=== PATIENT | female | born 1955 | race Caucasian/White ===

== ENCOUNTER 2021-09-16 11:04 | Outpatient (CLI) | payer MEDICARE, SELFPAY ==
--- NOTE | ~2021-09-16 | XR_ITS ---
XR knee RT 2V DATE: 09/16/2021 11:27 INDICATION: Bilateral knee pain worse on the left TECHNIQUE: AP and lateral views COMPARISON: None FINDINGS: There is prominent joint space narrowing and periarticular spurring of the patellofemoral a nd medial compartments as well as prominent lateral tibial plateau periarticular spurring. There is v arus deformity. No fracture or dislocation or joint effusion. No radiopaque intra-articular loose body or chondrocalc inosis. IMPRESSION: Tricompartment osteoarthritis, particularly severe at the medial and patellofemoral nura rtments, more severe than on the left Reviewed, dictated and finalized at location B. IMPRESSION: Tricompartment osteoarthritis, particularly severe at the medial an d patellofemoral compartments, more severe than on the left
--- NOTE | ~2021-09-16 | XR_ITS ---
XR knee LT 2V DATE: 09/16/2021 11:27 INDICATION: Bilateral knee pain, worse on the left TECHNIQUE: AP and lateral views COMPARISON: None FINDINGS: There is prominent joint space narrowing and spurring at the patellofemoral and medial comp artments. There is mild particular spurring of the lateral compartment. No fracture or dislocation or joint effusion, radiopaque intra-articular loose body or chondrocalcino sis is noted. No periosteal reaction or bone destruction. IMPRESSION: Tricompartment osteoarthritis, most prominent at the patellofemoral and medial compartmen ts Reviewed, dictated and finalized at location B. IMPRESSION: Tricompartment osteoarthritis, most prominent at the patellofemoral and medial compartments
== END 2021-09-16 11:05 | disposition home or self-care (01) ==
PROVIDERS: PCP Physician Assistant; Visit Provider Physician Assistant
DX: M25.561 Pain in right knee (principal); M25.562 Pain in left knee; G89.29 Other chronic pain; M17.0 Bilateral primary osteoarthritis of knee
CPT/HCPCS: 73560

== ENCOUNTER 2022-06-15 15:22 | Outpatient (CLI) | payer MEDICARE, SELFPAY ==
--- NOTE | 2022-06-15 15:40 | ECG_ITS ---
Measurements Intervals [place] Rate: 78 P: 47 IA: 175 QRS: 0 QRSD: 120 T: 46 QT: 381 QTc: 435 Interpretive Statements SINUS RHYTHM NONSPECIFIC INTRAVENTRICULAR CONDUCTION DELAY BORDERLINE ECG NO PREVIOUS ECG AVAILABLE FOR COMPARISON Electronically Signed On 06-15-2022 16:27:44 FIBRE COMPOSITE TECHNICIAN by Stew Bearden M.D.
[2022-06-15 15:54] LABS: Appearance Urine Clear (Clear); Bilirubin Urine Negative (Negative); Blood Urine Negative (Negative); Color Urine Yellow (Yellow); Glucose Urine UA Negative (Negative); Ketones Urine Negative (Negative); Leukocyte Esterase Ur Negative LEU/UL (Negative); Nitrate Urine Negative (Negative); Protein Urine Negative (Negative); Specific Grav Ur 1.015 (1.001-1.035); Urobilinogen Urine 0.2 mg/dL (<2.0)
[2022-06-15 15:55] LABS: Add Urine Microscopic? NO
== END 2022-06-15 15:23 | disposition home or self-care (01) ==
PROVIDERS: PCP Physician Assistant; Visit Provider Nurse Practitioner Family
DX: M17.12 Unilateral primary osteoarthritis, left knee (principal)
CPT/HCPCS: 81003; 93005

== ENCOUNTER 2022-07-07 13:05 | Outpatient (CLI) | payer MEDICARE, SELFPAY ==
[2022-07-07 14:43] LABS: Basophils Percent Auto 0.5 % (0.2-1.2); Eosinophils Absolute Auto 0.3 K/mm3 (0-0.3); Eosinophils Percent Auto 3.1 % (0-4.4); Hematocrit 40.4 % (37.0-47.0); Hemoglobin 12.9 g/dL (12.0-15.0); Immature Granulocyte Absolute 0.03 K/mm3 (0.00-0.031); Immature Granulocyte Percent A 0.4 % (0-0.5); Lymphocytes Absolute Auto 1.97 K/mm3 (0.9-3.2); Lymphocytes Percent Auto 24.4 % (18.3-44.2); Mean Corpuscular HGB Conc 31.9 g/dl (32-36); Mean Corpuscular Hemoglobin 28.1 pg (26-34); Mean Platelet Volume 9.3 fl (7.4-10.4); Monocytes Absolute Auto 0.6 K/mm3 (0.1-0.6); Monocytes Percent Auto 6.8 % (2.6-8.5); Neutrophils Absolute Auto 5.2 K/mm3 (1.3-6.7); Neutrophils Percent Auto 64.8 % (45.5-73.1); Platelet Count Result 314 k/mm3 (150-375); Red Blood Count 4.59 M/mm3 (4.2-5.4); Red Cell Distribution Width 12.8 % (11.5-14.5); White Blood Count 8.1 K/mm3 (4.5-10.0)
[2022-07-07 14:52] LABS: Albumin Level 4.5 g/dL (3.5-5.1); Anion Gap 6 mmol/L (8-16); Blood Urea Nitrogen 27 mg/dL (7-17); Calcium 9.3 mg/dL (8.4-10.2); Carbon Dioxide 29 mmol/L (22-30); Chloride 106 mmol/L (98-107); Estimated Glomerular Filt Rate 41; Glucose 99 mg/dL (65-110); Potassium 4.2 mmol/L (3.4-5.0); Sodium 141 mmol/L (137-145)
[2022-07-07 14:54] LABS: Prothrombin Time 12.4 Seconds (11.1-14.7)
[2022-07-07 14:55] LABS: Partial Thromboplastin Time 33.4 SECONDS (22.3-36.8)
[2022-07-07 16:15] LABS: Urine Cotinine NEGATIVE
[2022-07-07 18:43] LABS: Hemoglobin A1C 5.7 % (<5.7)
== END 2022-07-07 13:06 | disposition home or self-care (01) ==
LOC: ANHSURGERY 13:14
PROVIDERS: PCP Physician Assistant; Visit Provider Orthopaedic Surgery
DX: M17.12 Unilateral primary osteoarthritis, left knee (principal); Z01.818 Encounter for other preprocedural examination
CPT/HCPCS: 80048; 80307; 82040; 83036; 85025; 85610; 85730; 87081

== ENCOUNTER 2022-07-21 01:29 | Day surgery (SDC) | payer MEDICARE, SELFPAY ==
--- NOTE | 2022-07-07 13:28 | PC.NURSE ---
PRE-OP INSTRUCTIONS, PLEASE READ CAREFULLY Report to the Outpatient Waiting Room, entrance under the green pavilion located off [facility], at time _1000_ on date _07/21/22_. Planned Procedure Time: _1200_. PACK A SMALL OVERNIGHT BAG AND LEAVE IN THE CAR ALONG WITH YOUR WALKER Time changes happen often and if your time is changed the preop area will call you the afternoon before. - You and your visitor will be asked to self-screen and do not enter if you have any COVID symptoms. - Only one visitor is requested with a max of two and NO children visitors are allowed at this time. - The patient visitor may be requested to leave or wait in car when not with patient due to distancing restrictions. - A mask is optional within the hospital at this time. -VISITING HOURS 8AM-8PM Patients may have clear liquids (water, carbonated beverages, clear teas, apple juice) until 3 hours prior to surgery (0900 AM) with a maximum of 20 ounces. - No food from midnight until time of surgery Take the following medications with a SIP of water the morning of surgery: _DESVENLAFAXINE & TYLENOL IF NEEDED_ DO NOT STOP ANY OF YOUR OTHER PRESCRIPTION MEDICATIONS PRIOR TO SURGERY ?EXCEPT THE FOLLOWING Medications to discontinue per DR. WOLFF - _DICLOFENAC, ALEVE, MOTRINT 7 DAYS PRIOR TO SURGERY, Date to take last dose 07/13/22_ Please no make-up, nail romanian, hairspray, perfume, deodorant, or body powder the day of surgery. No jewelry (including any body piercings) or valuables the day of surgery, leave them at home. Please take a shower or bath the night before, or the morning of, surgery with an antibacterial soap. Wear comfortable, loose fitting clothing. - Jewelry must be removed prior to entering the operating room. Rings and piercings that are not removed may be cut off. - The hospital will not accept responsibility for valuables. - Please leave all valuables, including medications, at home the day of surgery. If you are going home after surgery, a licensed trencher driver must drive you home. - NO public transportation without another adult if you receive anesthesia. - We recommend that an adult stay with you for 24 hours following discharge. - We also recommend that you do not drive, make important decision, drink alcoholic beverages, or take any drugs that were not prescribed by your health care provider for at least 24 hours after your discharge time. Follow any additional instructions given to you from your surgeon. TOTAL JOINT CLASS 07/08/22 @ [address] [place] [address]-LOWER LEVEL, ENTRANCE #2 If you or anyone in your household have experienced Covid symptoms in the past week, please notify your surgeon or the nurse liaison at the phone number below for possible testing. Instructions given to _PATIENT & SPOUSE_and asked if any additional questions and then verbalized understanding. Patient advised to call surgeon office or pre surgery nurse liaison [phone] if any additional questions.
[2022-07-07 13:46] VITALS: BP 120/68; PULSE 74; RESP 18; TEMP 37; O2SAT 96; BMI 36.8
[2022-07-21] VITALS (13 sets, daily range): BP systolic 103–134; BP diastolic 50–72; PULSE 65–86; RESP 13–20; TEMP 36–36.8; O2SAT 95–100
--- NOTE | ~2022-07-21 | XR_ITS ---
EXAMINATION: [id number] DATE: 07/21/2022 14:27 INDICATION: Total left knee arthroplasty. Postop. TECHNIQUE: 2 views of left knee were obtained. COMPARISON: Left knee radiographs 06/18/2022 FINDINGS: There is a total left knee arthroplasty without patellar resurfacing in near-anatomic align ment. No fracture. There is gas in the knee joint and soft tissues, consistent with recent surgery. A nterior skin juju are noted. IMPRESSION: 1. Total left knee arthroplasty in near-anatomic alignment. Reviewed, dictated and finalized at location A.
[2022-07-21] MEDS: ACETAMINOPHEN 500 MG TABLET 1000 MG PO (10:17)
[2022-07-21] MEDS: LACTATED RINGERS 1,000 ML 30 ML IV CONT ×2 (10:21→14:14)
[2022-07-21] MEDS: TRANEXAMIC ACID 1,000MG/ISO100 1,000 MG/100 ML BAG 200 MG IVPB (10:22)
--- NOTE | 2022-07-21 10:46 | WPDHPUPDATE1 ---
History and Physical Update Update Date/Time: 07/21/22 10:46 History and Physical has been reviewed, including an updated exam of the patient. There are NO changes in the patient's condition. Risks, benefits, and alternatives have been discussed and questions answered. Patient agrees to proceed with procedure.
--- NOTE | 2022-07-21 11:19 | WPDANESEPPF ---
Anes - Initial Pre Proc Eval Procedure: Operation Date: 07/21/22 12:00 Proposed Procedures p Left Total Knee Arthroplasty - Reinaldo Zuñiga MD Date/Time: 07/21/22 11:19 Surgeon: Reinaldo Zuñiga MD Pre Op Diagnosis: left knee oa Patient Data Age: 66 Gender: F Height: 1.61 m Weight: 93.2 kg Last Vital Signs Temp 36.8 C 07/21/22 10:51 Pulse 82 07/21/22 10:51 Resp 16 07/21/22 10:51 BP 129/60 07/21/22 10:51 Pulse Ox 97 07/21/22 10:51 O2 Del Method Room Air 07/21/22 10:51 Allergies Allergy/AdvReac Type Severity Reaction Status Date / Time albuterol AdvReac Intermediate Rash Verified 07/21/22 09:56 ciprofloxacin AdvReac Intermediate Nausea Verified 07/21/22 09:56 Sulfa (Sulfonamide AdvReac Intermediate Rash Verified 07/21/22 09:56 Antibiotics) Home Medications Medication Instructions Recorded Confirmed Type dulaglutide 0.75 mg/0.5 mL 0.75 mg (0.5 mL) subcut WEEKLY #6 04/08/22 07/21/22 Rx subcutaneous pen injector mL (Trulicity) amlodipine 10 mg-atorvastatin 40 1 tablet PO DAILY #90 tabs 05/22/22 07/21/22 Rx mg tablet desvenlafaxine succinate 100 mg 100 mg PO DAILY #90 tabs 05/22/22 07/21/22 Rx tablet,extended release 24 hr diclofenac 50 mg-misoprostol 200 1 tablet PO BID #180 tabs 05/22/22 07/21/22 Rx mcg tablet,immed.and delayed release ezetimibe 10 mg tablet 10 mg PO DAILY #90 tabs 05/22/22 07/21/22 Rx irbesartan 300 mg tablet 300 mg PO DAILY #90 tabs 05/22/22 07/21/22 Rx triamterene 75 1 tablet PO DAILY #90 tabs 05/22/22 07/20/22 Rx mg-hydrochlorothiazide 50 mg tablet acetaminophen 500 mg tablet 500 mg PO QID PRN Pain 07/07/22 07/21/22 History potassium chloride 10 mEq 10 meq PO ONCE PRN MUSCLE CRAMPING 07/07/22 07/21/22 History capsule,extended release Patient hx anesthesia problems: none Family hx anesthesia problems: none Results Review: All pre-operative results and documents have been reviewed as part of the pre-operative evaluation. [facility] Past Medical History Medical History Anxiety Anxiety and depression Arthritis Back pain with history of spinal surgery Decreased GFR Diabetes Diarrhea Hearing loss High cholesterol Hypertension Hypertensive heart disease without heart failure Irritable bowel syndrome Keratoderma palmoplantaris transgrediens Left knee DJD Metabolic syndrome Osteoporosis Primary osteoarthritis involving multiple joints Psoriasis Right knee DJD Skin cancer Vitamin D deficiency, unspecified Surgical History Surgical History History of back surgery History of section complicating Family History Family History Father Hypertension Cancer Mother Hypertension Depression Anxiety Sibling Cancer Hypertension Depression Anxiety Other Lung cancer Malignant neoplasm of prostate Social History Social History Smoking status: Never smoker Second hand tobacco smoke exposure: No Additional smoking assessment comments: PT DENIES ALL FORMS OF TOBACCO USE Alcohol intake: current Alcohol use details: 2 DRINKS/MONTH Substance use: never Substance use type: does not use Lack of Transportation: No Lack of Food: Never True Current Housing: I Have Housing Concerned About Future Housing: No Difficulty Paying Gas/Electric Bills: No Difficulty Paying for Meds: No Currently Unemployed: No Education: High School Diploma/GED Difficulty w/ Childcare or Family Care: No Living arrangements: with family Gender identity (if verbalized by the patient): Female Spiritual care concerns: No Anes - Eval Final PreProcedure Day of Procedure 07/21/22 11:19 Patient weight: obese Heart: regular rate and rhythm Lungs: clear to auscultation A
--- NOTE | 2022-07-21 11:42 | WPDANESPNB ---
Anes - Peripheral Nerve Block Date/Time: 07/21/22 11:42 I have discussed with the patient/family/POA the placement of a peripheral nerve block for post-operative pain management, including associated risks, benefits, complications, and side effects. Alternative methods of post-operative analgesia were detailed. Questions were solicited and answers provided to the satisfaction of the patient/family/POA. Time-Out: A pre-procedural Time-Out was completed immediately before starting the procedure and confirmed: Patient Identification, Site, Procedure, Patient Position and the Availability of Requisite Equipment. Clinical Indications: Acute post-operative pain management requested by the operative surgeon. Nerve Block Insertion Note Anes-nerve block: femoral left Patient position: supine Skin prep: chlorhexidine Needle: 22 gauge, stimulating, insulated echogenic needle. Needle length: 50 mm Technique: nerve stimulation lost at (mA) (0.3) Injectate: bupivacaine 0.5% with epi 5 mcg/ml (20cc no epi) Observations: tolerated well Complications: none Procedure start time:: 1140 Procedure end time:: 114
[2022-07-21] MEDS: ceFAZolin 2 GM/D5W 50 ML 2 GM/50 ML BAG IVPB ×2 (11:57→20:00)
[2022-07-21] MEDS: TRANEXAMIC ACID 1,000 MG/10 ML AMPUL 1000 MG IV PUSH (13:24)
[2022-07-21] MEDS: GENTAMICIN BONE CEMENT REFOBACIN 1 EACH TOPICAL (13:25)
--- NOTE | 2022-07-21 14:14 | P.OP_ITS ---
Procedure Note - Detailed Date of Procedure 07/21/22 Pre-op Diagnosis left knee oa Post-op Diagnosis Same Procedure Performed L TKA Surgeon Reinaldo Zuñiga MD Anesthesia General Description of Procedure THE LEFT KNEE WAS PREPPED AND DRAPED IN THE STERILE FASHION. A MIDLINE SKIN INCISION WAS MADE. A MEDIAL PARAPATELLAR ARTHROTOMY WAS MADE. THE PATELLA WAS EVERTED. THERE WAS TRICOMPARTMENT DJD. AN INTRAMEDULLARY DESHAUN WAS PLACED IN THE FEMUR. A DISTAL FEMORAL CUT WAS MADE IN 5 DEGREES OF VALGUS REMOVING AP PROXIMATELY 9 MM OF BONE FROM THE DISTAL FEMUR. THE FEMUR WAS SIZED TO 62.5. A 62.5 FEMORAL CUTTING BLOCK WAS PLACED IN 3 DEGREES OF EXTERNAL ROTATION AND IN ALIGNMENT WITH SHANTELLE'S LINE AND THE TRANSEPICONDYLAR AXIS. ANTERIOR POSTERIOR AND CHAMFER CUTS WERE MADE. THE CUTS WERE EXCELLENT. NEXT AN INTRAMEDULLARY CUTTING GUIDE WAS PLACED IN THE TIBIA. A TRANS TIBIAL CUT WAS MADE ALONG THE LONG AXIS OF THE TIBIA. APPROXIMATELY 10 MM OF BONE WAS REMOVED FROM THE HIGH SIDE OF THE TIBIA. THE TIBIA WAS THEN PLANED TO A SMOOTH SURFACE. POSTERIOR FEMORAL OSTEOPHYTES WERE REMOVED FROM THE FEMORAL CONDYLES. A 71 TIBIAL TRIAL WAS PLACED IN ALIGNMENT WITH THE 1/3 MEDIAL ASPECT OF THE TIBIAL TUBERCLE. THEN A 62.5 FEMORAL TRIAL COMPONENT WAS PLACED. BOTH HAD EXCELLENT FITS. EVENTUALLY A 10 MM CR POLYETHYLENE TRIAL COMPONENT WAS PLACED. THE KNEE WAS TAKEN THROUGH A RANGE OF MOTION. THE KNEE CAME OUT TO FULL EXTENSION. THERE WAS NO ABNORMAL TILT TO THE PATELLA. THERE WAS GOOD A/P AND VARUS/VALGUS STABILITY. THERE WAS NO EXCESSIVE ROLL BACK WITH FLEXION. THE TRIAL COMPONENTS WERE REMOVED. THEN A 62.5 FEMORAL COMPONENT AND 75 TIBIAL COMPONENT WITH A 10 CR POLYETHYLENE COMPONENT WERE CEMENTED INTO PLACE. ONCE THE CEMENT WAS HARD THE KNEE WAS TAKEN THROUGH A ROM AGAIN AND FOUND TO BE STABLE WITH NO PATELLA TILT NO EXCESSIVE ROLL BACK WITH FLEXION AND GOOD STABILITY WITH COMPLETE AND FULL EXTENSION. THE KNEE WAS IRRIGATED WITH STERILE BETADINE AND WATER FOR ABOUT 3 MINUTES. THE BLEEDERS WERE CAUTERIZED. THE ARTHROTOMY WAS REPAIRED WITH NUMBER 1 VICRYL. THE SUB CUTANEOUS LAYER WITH 2-0 VICRYL AND THE SKIN WITH ADITI. THE WOUND WAS WASHED AND A STERILE DRESSING WAS APPLIED. PATIENT WAS EXTUBATED. Estimated Blood Loss -150.0 Pathology None sent Complications No immediate complications Condition Stable Disposition PACU
[2022-07-21] MEDS: fentaNYL CITRATE INJ (*CRX) 100 MCG/2 ML VIAL 25 MCG IV PUSH ×8 (14:30→15:39)
--- NOTE | 2022-07-21 16:12 | ADMGEN ---
This patient, Ratna Booth, was admitted to 3 [facility] Surg Room 307-01. Patient/family oriented to hospital policies and general routines including ID bracelet, bed and alarms, visiting hours, pain management, procedures, bathroom and other care routines, personal items, smoking policy, room service/diet, and visiting hours. Information on how to activate the Rapid Response Team has been discussed. Patient/Family are encouraged to report perceived risks to care and to ask questions if they do not understand what they are told or what they should do.
[2022-07-21] MEDS: oxyCODONE/ACETAMINOPHEN (*CRX) 5-325 MG TABLET 1 TABLET PO (16:46)
[2022-07-21] MEDS: SODIUM CHLORIDE 0.9% IV 1,000 ML 125 ML IV CONT (16:46)
[2022-07-21] MEDS: SENNA/DOCUSATE SODIUM TABLET 2 TAB PO (17:38)
[2022-07-21] MEDS: KETOROLAC 15 MG/ML VIAL (*BKC) IV PUSH (17:38)
[2022-07-21] MEDS: FAMOTIDINE 20 MG TABLET PO (21:02)
[2022-07-22 01:31] VITALS: BP 110/49; PULSE 75; RESP 14; TEMP 36.9; O2SAT 98
[2022-07-22] MEDS: ceFAZolin 2 GM/D5W 50 ML 2 GM/50 ML BAG IVPB ×2 (04:41→12:04)
[2022-07-22] MEDS: oxyCODONE/ACETAMINOPHEN (*CRX) 5-325 MG TABLET 1 TABLET PO (04:48)
[2022-07-22 05:31] VITALS: BP 109/62; PULSE 70; RESP 14; TEMP 36.6; O2SAT 96
[2022-07-22 06:21] LABS: Basophils Percent Auto 0.5 % (0.2-1.2); Eosinophils Absolute Auto 0.1 K/mm3 (0-0.3); Eosinophils Percent Auto 1.1 % (0-4.4); Hematocrit 31.2 % (37.0-47.0); Immature Granulocyte Absolute 0.02 K/mm3 (0.00-0.031); Immature Granulocyte Percent A 0.2 % (0-0.5); Mean Corpuscular HGB Conc 32.1 g/dl (32-36); Mean Corpuscular Hemoglobin 27.3 pg (26-34); Mean Corpuscular Volume 85.2 fl (80-100); Mean Platelet Volume 9.2 fl (7.4-10.4); Monocytes Absolute Auto 0.8 K/mm3 (0.1-0.6); Monocytes Percent Auto 8.6 % (2.6-8.5); Neutrophils Absolute Auto 6.4 K/mm3 (1.3-6.7); Neutrophils Percent Auto 71.6 % (45.5-73.1); Platelet Count Result 247 k/mm3 (150-375); Red Blood Count 3.66 M/mm3 (4.2-5.4); Red Cell Distribution Width 12.8 % (11.5-14.5); White Blood Count 8.9 K/mm3 (4.5-10.0)
[2022-07-22 06:37] LABS: Anion Gap 5 mmol/L (8-16); Blood Urea Nitrogen 25 mg/dL (7-17); Calcium 8.5 mg/dL (8.4-10.2); Carbon Dioxide 25 mmol/L (22-30); Chloride 107 mmol/L (98-107); Estimated CRCL calculation 54 ml/min; Estimated Glomerular Filt Rate 55; Glucose 115 mg/dL (65-110); Potassium 3.6 mmol/L (3.4-5.0); Sodium 137 mmol/L (137-145)
[2022-07-22] MEDS: KETOROLAC 15 MG/ML VIAL (*BKC) IV PUSH ×3 (06:43→12:04)
[2022-07-22 08:00] VITALS: BP 125/53; PULSE 82; RESP 16; TEMP 36.8; O2SAT 95
[2022-07-22] MEDS: SENNA/DOCUSATE SODIUM TABLET 2 TAB PO (09:10)
[2022-07-22] MEDS: TRIAMTERENE 37.5 MG/HCTZ 25 MG (MAXZIDE) TABLET 2 TAB PO (09:10)
[2022-07-22] MEDS: polyethylene glycoL 3350 17 GM POWD.PACK PO (09:10)
[2022-07-22] MEDS: DESVENLAFAXINE SUCCINATE 50 MG TAB.ER.24H 100 MG PO (09:10)
[2022-07-22] MEDS: ATORVASTATIN 40 MG TABLET PO (09:10)
[2022-07-22] MEDS: IRBESARTAN 150 MG TABLET 300 MG PO (09:11)
[2022-07-22] MEDS: FAMOTIDINE 20 MG TABLET PO (09:11)
[2022-07-22] MEDS: amLODIPine BESYLATE 5 MG TABLET 10 MG PO (09:11)
[2022-07-22] MEDS: EZETIMIBE 10 MG TABLET PO (09:11)
--- NOTE | 2022-07-22 11:44 | WPDANESPN ---
Anes - Prog Note Post-Op Date/Time: 07/22/22 11:44 Cardiovascular status: normal Respiratory status: normal Airway patency: baseline Mental status: baseline Post-Op hydration status: normal Vital Signs: Last Vital Signs Temp 36.8 C 07/22/22 08:00 Pulse 82 07/22/22 08:00 Resp 16 07/22/22 08:00 BP 125/53 L 07/22/22 08:00 Pulse Ox 95 07/22/22 08:00 O2 Del Method Room Air 07/22/22 08:19 O2 Flow Rate 8 07/21/22 14:50 Pain Score (VAS): 0 I/O: Intake & Output 07/21/22 07/22/22 07/22/22 23:59 07:59 15:59 Intake Total 290 50 360 Balance 290 50 360 Laboratory Tests 07/22/22 06:00 07/22/22 06:00 07/22/22 07/22/22 06:00 06:00 WBC 8.9 RBC 3.66 L Hgb 10.0 L Hct 31.2 L MCV 85.2 MCH 27.3 MCHC 32.1 RDW 12.8 Plt Count 247 MPV 9.2 Immature Gran % (Auto) 0.2 Neut % (Auto) 71.6 Lymph % (Auto) 18.0 L [place] % (Auto) 8.6 H Eos % (Auto) 1.1 Baso % (Auto) 0.5 Lymph # (Auto) 1.60 [place] # (Auto) 0.8 H Eos # (Auto) 0.1 Baso # (Auto) 0.0 Abs Immat Gran (auto) 0.02 Absolute Neuts (auto) 6.4 Absolute Nucleated RBC 0.0 Nucleated RBC % 0.0 Sodium 137 Potassium 3.6 Chloride 107 Carbon Dioxide 25 Anion Gap 5 L BUN 25 H Creatinine 1.00 Estim Creat Clear Calc 54 Estimated GFR 55 L Glucose 115 H Calcium 8.5 Post-procedural complaints: none Patient Feedback: Patient satisfied with anesthetic care.
[2022-07-22 12:00] VITALS: BP 129/58; PULSE 77; RESP 14; TEMP 37.1; O2SAT 97
--- NOTE | 2022-07-22 15:17 | PM.PNORT ---
Progress Note: A&P Assessment and Plan (1) Right knee DJD: Code(s): M17.11 - Unilateral primary osteoarthritis, right knee Status: Acute (2) Left knee DJD: Code(s): M17.12 - Unilateral primary osteoarthritis, left knee Status: Acute Assessment and Plan: POD 1 DOING VERY WELL. OK TO DC HOME F/U IN 3 WEEKS. Subjective Subjective Date/Time Seen: 07/22/22 15:17 POD 1 DOING WELL. NO CALF PAIN Exam Extrem: Other: VSS AFEBRILE DRESSING DRY NV INTACT NEG HOMANS SIGN CALF SOFT THIGH SOFT NON TENDER Objective Data Vital Signs Vital Signs: Vital Signs - 24 hr 07/21/22 15:20 07/21/22 15:35 07/21/22 16:20 Temperature Pulse Rate 74 73 Respiratory Rate 13 16 Blood Pressure 118/72 120/64 Pulse Oximetry 98 100 Oxygen Delivery Room Air Room Air Room Air 07/21/22 15:46 07/21/22 16:01 07/21/22 16:31 Temperature 36.2 C L 36.2 C L 36.0 C L Pulse Rate 81 78 79 Respiratory Rate 16 14 16 Blood Pressure 119/72 134/68 123/50 L Pulse Oximetry 95 98 95 Oxygen Delivery 07/21/22 17:31 07/21/22 21:31 07/22/22 01:31 Temperature 36.2 C L 36.7 C 36.9 C Pulse Rate 83 65 75 Respiratory Rate 14 14 14 Blood Pressure 129/54 L 103/54 L 110/49 L Pulse Oximetry 95 95 98 Oxygen Delivery 07/21/22 20:00 07/22/22 05:31 07/22/22 08:19 Temperature 36.6 C Pulse Rate 75 70 Respiratory Rate 14 14 Blood Pressure 109/62 Pulse Oximetry 98 96 Oxygen Delivery Room Air Room Air 07/22/22 08:00 07/22/22 12:00 Temperature 36.8 C 37.1 C Pulse Rate 82 77 Respiratory Rate 16 14 Blood Pressure 125/53 L 129/58 L Pulse Oximetry 95 97 Oxygen Delivery Intake/Output Intake/Output: Intake & Output 07/19/22 07/20/22 07/21/22 07/22/22 23:59 23:59 23:59 23:59 Intake Total 1840 650 Balance 1840 650 Meds/Results Medications: Active Medications Generic Name Dose Route Start Last Admin Trade Name Freq PRN Reason Stop Dose Admin Acetaminophen 500 mg 07/21/22 15:46 Acetaminophen 500 Mg Tablet PO QID PRN PAIN RATED 1-3 Amlodipine Besylate 10 mg 07/22/22 09:00 07/22/22 09:11 Amlodipine Besylate 5 Mg Tablet PO 10 mg DAILY ALICIA Administration Aspirin 325 mg 07/21/22 21:00 Aspirin 325 Mg Enteric Tablet PO Q12HR [facility] Atorvastatin Calcium 40 mg 07/22/22 09:00 07/22/22 09:10 Atorvastatin 40 Mg Tablet PO 40 mg DAILY ALICIA Administration Desvenlafaxine Succinate 100 mg 07/22/22 09:00 07/22/22 09:10 Desvenlafaxine Succinate 50 Mg Tab.Er.24h PO 100 mg DAILY [facility] Administration Diazepam 5 mg 07/21/22 15:46 Diazepam (*Crx) 5 Mg Tablet PO Q8H PRN Spasms Diphenhydramine HCl 25 mg 07/21/22 15:46 Diphenhydramine Hcl Inj 50 Mg/Ml Vial IV PUSH Q6H PRN Itching Ezetimibe 10 mg 07/22/22 09:00 07/22/22 09:11 Ezetimibe 10 Mg Tablet PO 10 mg DAILY [facility] Administration Famotidine 20 mg 07/21/22 21:00 07/22/22 09:11 Famotidine 20 Mg Tablet PO 20 mg Q12HR ALICIA Administration Irbesartan 300 mg 07/22/22 09:00 07/22/22 09:11 Irbesartan 150 Mg Tablet PO 300 mg DAILY ALICIA Administration Ketorolac Tromethamine 15 mg 07/21/22 18:00 07/22/22 12:04 Ketorolac 15 Mg/Ml Vial (*Bkc) IV PUSH 07/22/22 18:01 15 mg Q6HR ALICIA Administration Miscellaneous Information 1 each 07/21/22 00:01 Change Aspirin Start Time For When Iv Toradol Is Complete? XX 08/20/22 00:00 CLARIFY ALICIA Naloxone HCl 0.1 mg 07/21/22 15:46 Naloxone Hcl 0.4 Mg/Ml Vial IV PUSH Q2M PRN Opiate Reversal Ondansetron HCl 4 mg 07/21/22 15:46 Ondansetron Inj 4 Mg/2 Ml Vial IV PUSH Q4H PRN Nausea And Vomiting Oxycodone/Acetaminophen 1 tablet 07/21/22 15:46 07/22/22 04:48 Oxycodone/Acetaminophen (*Crx) 5-325 Mg Tablet PO 1 tablet Q4H PRN Administration Pain Rated 4-6 Oxycodone/Acetaminophen 2 tablet 07/21/22 15:46 Oxycodone/Acetaminophen (*Crx) 5-325 Mg Ta
--- NOTE | 2022-07-22 15:20 | PM.DS ---
DS: Admitting Diagnosis Discharge Date 07/22/22 Admitting Diagnosis LEFT KNEE DJD DS: Discharge Diagnosis Discharge Diagnosis (1) Left knee DJD: Code(s): M17.12 - Unilateral primary osteoarthritis, left knee Status: Acute DS: Summary Hospital Course Reason for hospitalization: LEFT TKA Hospital Course: PATIENT WAS ADMITTED S/P TOTAL KNEE ARTHROPLASTY FOR POSTOPERATIVE MEDICAL MANAGEMENT, PAIN CONTROL AND MOBILIZATION WITH PHYSICAL AND OCCUPATIONAL THERAPY. THE PATIENT PROGRESSED WELL WITH PT/OT. LABS AND VITALS REMAINED STABLE AND PAIN WELL CONTROLLED. THE PATIENT HAS BEEN CLEARED TO BE DISCHARGED HOME. FOLLOW UP APPOINTMENT SCHEDULED. DISCHARGE INSTRUCTIONS DISCUSSED AT LENGTH WITH THE PATIENT. MEDICATIONS REVIEWED. Status at Discharge Cognitive/behavioral status at discharge: STABLE Time Spent with Patient Time attestation: Total time spent providing and/or coordinating discharge services: DS: Data Data Completed and Pending Labs on day of discharge: Labs from last 24 hours 07/22/22 07/22/22 06:00 06:00 WBC 8.9 RBC 3.66 L Hgb 10.0 L Hct 31.2 L MCV 85.2 MCH 27.3 MCHC 32.1 RDW 12.8 Plt Count 247 MPV 9.2 Immature Gran % (Auto) 0.2 Neut % (Auto) 71.6 Lymph % (Auto) 18.0 L [place] % (Auto) 8.6 H Eos % (Auto) 1.1 Baso % (Auto) 0.5 Lymph # (Auto) 1.60 [place] # (Auto) 0.8 H Eos # (Auto) 0.1 Baso # (Auto) 0.0 Abs Immat Gran (auto) 0.02 Absolute Neuts (auto) 6.4 Absolute Nucleated RBC 0.0 Nucleated RBC % 0.0 Sodium 137 Potassium 3.6 Chloride 107 Carbon Dioxide 25 Anion Gap 5 L BUN 25 H Creatinine 1.00 Estim Creat Clear Calc 54 Estimated GFR 55 L Glucose 115 H Calcium 8.5 Procedures/Treatments: LEFT TKA Discharge Plan Discharge Patient Disposition: Home Health Service Discharge Instructions: Post Op Total Knee Replacement Instructions Dr. Reinaldo Zuñiga [phone] Your dressing will be changed prior to your discharge. You will be sent home with one additional dressing to be changed on post op day 7 by the home health RN. Your juju will be removed on the 14th day after surgery and steri-strips will be placed. Please practice good hand hygiene and do not touch your incision in order to prevent infection. You may shower with your dressing but do not submerge in a bath tub. Do not drive or operate machinery until you are released by Dr. Zuñiga. Do not walk without a walker for any reason until you are released by Dr. Zuñiga. Continue to use your ice machine. Please use a towel or pillow case to protect your skin before applying your ice machine. Do NOT place a pillow under your knee. You may use a pillow from the calf down if needed. This will prevent a flexion contracture postoperatively. You may begin use of your CPM machine at home if you have been given one pre-operatively. DO NOT USE WHILE YOU ARE SLEEPING. Your first post op appointment was sent to you via mail preoperatively. If you have any questions or are unable to make your appointment, please contact our office for scheduling questions.? Your medications have been sent to your pharmacy. You have been sent home with pain medication. Please olive picker an over the counter stool softener to prevent constipation due to narcotic use. Please keep this in mind during your postoperative recovery. If you are not experiencing regular bowel movements, please contact our office for further instruction.? Please contact our office with any questions/concerns regarding your knee at [phone]. Care Coordination: Patient to have [facility] for PT/OT eval and treat, and snf. They can be reached at [phone] if you have any questions. Patient Instructions: Antibiotic Form, Pain Management in Older Adults (DC) Stand Alone Forms: General Discharge Information Follow-up/Referrals: Reinaldo Zuñiga MD [Physician] - Keep Reg. Scheduled Appt.
== END 2022-07-22 16:35 | disposition home health service (06) ==
LOC: ANHSURGERY 09:32 → ANH3MEDSUR 15:53
PROVIDERS: PCP Physician Assistant; Visit Provider Orthopaedic Surgery
PROC: (CPT 27447; principal; 2022-07-21 12:00)
DX: M17.12 Unilateral primary osteoarthritis, left knee (principal); G89.18 Other acute postprocedural pain; Z79.899 Other long term (current) drug therapy; I11.9 Hypertensive heart disease without heart failure; E11.9 Type 2 diabetes mellitus without complications; E78.00 Pure hypercholesterolemia, unspecified; F41.8 Other specified anxiety disorders; E66.9 Obesity, unspecified; Z68.35 Body mass index [BMI] 35.0-35.9, adult
CPT/HCPCS: 27447; 64447; 36415; 73560; 80048; 85025; 86850; 86900; 86901; 97110; 97116; 97161; 97165; A9270; C1713; C1776; J0171; J0690; J1885; J2250; J2270; J2405; J2704; J2795; J3010; J7030; J7120

== ENCOUNTER 2022-09-24 12:30 | Outpatient (RCR) | payer MEDICARE, SELFPAY ==
--- NOTE | 2022-08-20 09:39 | PTOPEVAL1 ---
Assessment and note entered by Michael Carrera, PT, DPT Evaluation Information Assessment Status Evaluation Diagnosis L TKA Onset 07/21/22 Subjective Information Pt has a L TKA on 07/21/22, she completed 2 weeks of home health PT. She states she is using a straight cane for long distances or when walking outside. She is taking Tylenol for pain management. Pt states she likes to garden, exercise at the [facility], and help take care of her grandkids. Reported Pain Level Pain Score 2: Self Report Assessment PT Clinical Summary Ratna presents to therapy today for her initial evaluation following a L TKA on 07/21/22. Today she demonstrates active knee motion from 0-95 deg, gross L knee strength of 4/5, and a decreased gait speed. She ambulates to decreased knee flexion on the R, with a mild gabriela Trendelenburg pattern. Skilled physical therapy services are indicated to address the deficits noted above, to improve functional mobility, and to return to baseline. Plan of Care Interventions Electrical Stimulation,Gait Training,Hot Pack/Cold Pack,Manual Therapy,Neuro Re-education,Patient/ Caregiver Educati,Therapeutic Activities, Therapeutic Exercise PT Services Indicated Yes Treatment Frequency and 2x/wk for 5 wks Duration These treatments will address the objective and functional deficits as defined above. The patient will be advanced safely and appropriately in order for the patient to progress towards his/her prior level of function. Additional exercises will be introduced and as well as a comprehensive home exercise program upon discharge, if needed, ?to ensure carryover of functional gains achieved in the clinic. This treatment plan has been reviewed and agreement upon by the patient.
--- NOTE | 2022-09-24 13:05 | PTOPDC ---
Assessment and note entered by Michael Carrera, PT, DPT Evaluation Information Assessment Status Discharge Diagnosis L TKA Onset 07/21/22 Subjective Information Pt states her L knee is doing great, she states her R knee has become the limitations. Pt reports no limitations in her walking or daily activities. She states she is still a little nervous on stairs, and this is the hardest thing for her. Pt reports 80% improvement in overall symptoms. Reported Pain Level Pain Score 0: Self Report Assessment PT Clinical Summary Ratna presents to therapy today for her progress report following 10 visits of skilled therapy following a L TKA on 07/21/22. Today she demonstrates good active knee ROM 0-115, good LE strength grossly 5/5, and reports no functional limitations. She continues to have mild gait deviations but these are d/t lack of terminal knee extension on her R knee. She has met all of her therapy goals, she no longer requires skilled services and will be discharged at this time. Plan of Care PT Services Indicated No
== END 2022-09-24 15:50 | disposition home or self-care (01) ==
LOC: ANHGOSHPT 12:30
PROVIDERS: PCP Physician Assistant; Visit Provider Orthopaedic Surgery
DX: Z47.1 Aftercare following joint replacement surgery (principal); Z96.652 Presence of left artificial knee joint
CPT/HCPCS: 97110; 97112; 97116; 97140; 97161; 97530

== ENCOUNTER 2022-11-16 10:01 | Outpatient (CLI) | payer MEDICARE, SELFPAY ==
[2022-11-16 11:08] LABS: Appearance Urine Clear (Clear); Bilirubin Urine Negative (Negative); Blood Urine Negative (Negative); Color Urine Yellow (Yellow); Glucose Urine UA Negative (Negative); Ketones Urine Negative (Negative); Leukocyte Esterase Ur Negative LEU/UL (Negative); Nitrate Urine Negative (Negative); Protein Urine Negative (Negative); Specific Grav Ur 1.019 (1.001-1.035); Urobilinogen Urine 0.2 mg/dL (<2.0); pH Urine 5.5 (5.0-9.0)
[2022-11-16 11:09] LABS: Basophils Percent Auto 0.8 % (0.2-1.2); Eosinophils Absolute Auto 0.2 K/mm3 (0-0.3); Eosinophils Percent Auto 4.3 % (0-4.4); Hematocrit 41.2 % (37.0-47.0); Hemoglobin 12.7 g/dL (12.0-15.0); Immature Granulocyte Absolute 0.01 K/mm3 (0.00-0.031); Immature Granulocyte Percent A 0.2 % (0-0.5); Lymphocytes Absolute Auto 1.31 K/mm3 (0.9-3.2); Lymphocytes Percent Auto 26.5 % (18.3-44.2); Mean Corpuscular HGB Conc 30.8 g/dl (32-36); Mean Corpuscular Hemoglobin 26.4 pg (26-34); Mean Corpuscular Volume 85.7 fl (80-100); Mean Platelet Volume 9.3 fl (7.4-10.4); Monocytes Absolute Auto 0.5 K/mm3 (0.1-0.6); Monocytes Percent Auto 9.5 % (2.6-8.5); Neutrophils Absolute Auto 2.9 K/mm3 (1.3-6.7); Neutrophils Percent Auto 58.7 % (45.5-73.1); Platelet Count Result 295 k/mm3 (150-375); Red Blood Count 4.81 M/mm3 (4.2-5.4); Red Cell Distribution Width 12.3 % (11.5-14.5); White Blood Count 4.9 K/mm3 (4.5-10.0)
[2022-11-16 11:20] LABS: Albumin Level 4.4 g/dL (3.5-5.1); Anion Gap 5 mmol/L (8-16); Blood Urea Nitrogen 26 mg/dL (7-17); Calcium 9.5 mg/dL (8.4-10.2); Carbon Dioxide 27 mmol/L (22-30); Chloride 106 mmol/L (98-107); Estimated Glomerular Filt Rate 50; Glucose 102 mg/dL (65-110); Phosphorus 3.7 mg/dL (2.5-4.5); Potassium 4.5 mmol/L (3.4-5.0); Sodium 138 mmol/L (137-145)
[2022-11-16 11:24] LABS: Creatinine Urine 149.3 mg/dL
[2022-11-16 11:25] LABS: Add Urine Microscopic? NO
[2022-11-16 11:27] LABS: Total Protein Urine Random < 5 mg/dL
[2022-11-16 11:28] LABS: Ur Ttl Prot Creatinine Ratio < 0.03 mg/mg (0-0.20)
== END 2022-11-16 10:02 | disposition home or self-care (01) ==
PROVIDERS: PCP Physician Assistant; Referring Provider Internal Medicine Nephrology; Visit Provider Orthopaedic Surgery
DX: E78.5 Hyperlipidemia, unspecified (principal); M17.11 Unilateral primary osteoarthritis, right knee; N18.32 Chronic kidney disease, stage 3b
CPT/HCPCS: 36415; 80069; 81003; 82570; 84156; 85025

== ENCOUNTER 2022-12-03 15:58 | Outpatient (CLI) | payer MEDICARE, SELFPAY ==
[2022-12-03 17:41] LABS: Urine Cotinine NEGATIVE
== END 2022-12-03 15:59 | disposition home or self-care (01) ==
PROVIDERS: PCP Physician Assistant; Visit Provider Orthopaedic Surgery
DX: R53.83 Other fatigue (principal); M54.9 Dorsalgia, unspecified; I10 Essential (primary) hypertension; M17.11 Unilateral primary osteoarthritis, right knee; Z98.890 Other specified postprocedural states
CPT/HCPCS: 80307; 87081

== ENCOUNTER 2022-12-08 01:38 | Day surgery (SDC) | payer MEDICARE, SELFPAY ==
[2022-12-03 11:56] VITALS: BMI 37.7
--- NOTE | 2022-12-03 12:02 | PC.NURSE ---
PRE-OP INSTRUCTIONS, PLEASE READ CAREFULLY Report to the Outpatient Waiting Room, entrance under the green pavilion located off [facility], at time _1000_ on date _12/08/22_. Planned Procedure Time: _1200_. PACK A SMALL OVERNIGHT BAG AND LEAVE IN THE CAR ALONG WITH YOUR WALKER Time changes happen often and if your time is changed the preop area will call you the afternoon before. - You and your visitor will be asked to self-screen and do not enter if you have any COVID symptoms. - A mask is optional within the hospital at this time. -VISITING HOURS 8AM-8PM Patients may have clear liquids (water, carbonated beverages, clear teas, apple juice) until 3 hours prior to surgery (0900 AM) with a maximum of 20 ounces. - No food from midnight until time of surgery Take the following medications with a SIP of water the morning of surgery: _DESVENLAFAXINE, & TYLENOL IF NEEDED_ DO NOT STOP ANY OF YOUR OTHER PRESCRIPTION MEDICATIONS PRIOR TO SURGERY ?EXCEPT THE FOLLOWING Medications to discontinue per physician _NONE_, Date to take last dose Please no make-up, nail arabic, hairspray, perfume, deodorant, or body powder the day of surgery. No jewelry (including any body piercings) or valuables the day of surgery, leave them at home. Please take a shower or bath the night before, or the morning of, surgery with an antibacterial soap. Wear comfortable, loose fitting clothing. - Jewelry must be removed prior to entering the operating room. Rings and piercings that are not removed may be cut off. - The hospital will not accept responsibility for valuables. - Please leave all valuables, including medications, at home the day of surgery. If you are going home after surgery, a licensed truck driver rubbish collector must drive you home. - NO public transportation without another adult if you receive anesthesia. - We recommend that an adult stay with you for 24 hours following discharge. - We also recommend that you do not drive, make important decision, drink alcoholic beverages, or take any drugs that were not prescribed by your health care provider for at least 24 hours after your discharge time. Follow any additional instructions given to you from your surgeon. If you or anyone in your household have experienced Covid symptoms in the past week, please notify your surgeon or the nurse liaison at the phone number below for possible testing. Telephone instructions given to _PATIENT_and asked if any additional questions and then verbalized understanding. Patient advised to call surgeon office or pre surgery nurse liaison [phone] if any additional questions.
--- NOTE | 2022-12-07 11:33 | WPDANESEPPF ---
Anes - Initial Pre Proc Eval Procedure: Operation Date: 12/08/22 12:00 Proposed Procedures p Right Total Knee Arthroplasty - Reinaldo Zuñiga MD Date/Time: 12/07/22 11:33 Surgeon: Reinaldo Zuñiga MD Pre Op Diagnosis: right knee djd Patient Data Age: 67 Gender: F Height: 1.61 m Weight: 98.18 kg Allergies Allergy/AdvReac Type Severity Reaction Status Date / Time albuterol AdvReac Intermediate Rash Verified 12/08/22 10:13 ciprofloxacin AdvReac Intermediate Nausea Verified 12/08/22 10:13 Sulfa (Sulfonamide AdvReac Intermediate Rash Verified 12/08/22 10:13 Antibiotics) Home Medications Medication Instructions Recorded Confirmed Type amlodipine 10 mg-atorvastatin 40 1 tablet PO DAILY #90 tabs 05/22/22 12/08/22 Rx mg tablet desvenlafaxine succinate 100 mg 100 mg PO DAILY #90 tabs 05/22/22 12/08/22 Rx tablet,extended release 24 hr ezetimibe 10 mg tablet 10 mg PO DAILY #90 tabs 05/22/22 12/08/22 Rx irbesartan 300 mg tablet 300 mg PO DAILY #90 tabs 05/22/22 12/08/22 Rx triamterene 75 1 tablet PO DAILY #90 tabs 05/22/22 12/08/22 Rx mg-hydrochlorothiazide 50 mg tablet acetaminophen 500 mg tablet 500 mg PO QID PRN Pain 07/07/22 12/08/22 History potassium chloride 10 mEq 10 meq PO ONCE PRN MUSCLE CRAMPING 07/07/22 12/03/22 History capsule,extended release Patient hx anesthesia problems: none Family hx anesthesia problems: none Results Review: All pre-operative results and documents have been reviewed as part of the pre-operative evaluation. [facility] Past Medical History Medical History (Updated 11/29/22 @ 10:37 by Gigi Cunningham PA-C) Anxiety Anxiety and depression Arthritis Back pain with history of spinal surgery Decreased GFR Diabetes Diarrhea Hearing loss High cholesterol Hypertension Hypertensive heart disease without heart failure Irritable bowel syndrome Keratoderma palmoplantaris transgrediens Left knee DJD Metabolic syndrome Osteoporosis Primary osteoarthritis involving multiple joints Psoriasis Right knee DJD Skin cancer Vitamin D deficiency, unspecified Surgical History Surgical History (Updated 11/29/22 @ 10:37 by Gigi Cunningham PA-C) History of back surgery History of section complicating History of total left knee replacement 07/21/2022 Family History Family History Father Hypertension Cancer Mother Hypertension Depression Anxiety Sibling Cancer Hypertension Depression Anxiety Other Lung cancer Malignant neoplasm of prostate Social History Social History Smoking status: Never smoker Second hand tobacco smoke exposure: No Additional smoking assessment comments: PT DENIES ALL FORMS OF TOBACCO USE Alcohol intake: current Alcohol use details: 2/MONTH Substance use: never Substance use type: does not use Lack of Transportation: No Lack of Food: Never True Current Housing: I Have Housing Concerned About Future Housing: No Difficulty Paying Gas/Electric Bills: No Difficulty Paying for Meds: No Currently Unemployed: No Education: High School Diploma/GED Difficulty w/ Childcare or Family Care: No Living arrangements: with family Gender identity (if verbalized by the patient): Female Spiritual care concerns: No Anes - Eval Final PreProcedure Day of Procedure 12/07/22 11:33 Patient weight: obese Heart: regular rate and rhythm Lungs: clear to auscultation Airway: Mallampati scale class II Neurological: alert and oriented Last oral intake: >/= 8 hours ASA classification: III Emergent: no Anesthetic plan: proceed Anesthesia type and monitoring: general LMA and standard monitoring Results Review: All pre-operative results and documents have been reviewed as part of the pre-operative evaluation. Informed Consent: The patient's anesthetic plan and its at
[2022-12-08] VITALS (13 sets, daily range): BP systolic 98–144; BP diastolic 48–72; PULSE 68–86; RESP 12–20; TEMP 35.6–36.8; O2SAT 90–98
--- NOTE | ~2022-12-08 | XR_ITS ---
EXAMINATION: [id number] DATE: 12/08/2022 15:00 INDICATION: Postoperative evaluation following right total knee arthroplasty. TECHNIQUE: Anteroposterior and lateral views of the right knee were obtained. COMPARISON: None. FINDINGS: Right total knee arthroplasty without patellar resurfacing appears well seated and in near anatomic a lignment. No fractures identified. Skin juju anterior to the knee. Expected postoperative subcuta neous and intra-articular gas. IMPRESSION: 1. Right total knee arthroplasty, negative for postoperative purposes. Reviewed, dictated and finalized at location L.
[2022-12-08] MEDS: ACETAMINOPHEN 500 MG TABLET 1000 MG PO (10:20)
[2022-12-08] MEDS: LACTATED RINGERS 1,000 ML 30 ML IV CONT ×2 (10:48→14:46)
--- NOTE | 2022-12-08 10:55 | WPDANESEPPF ---
Anes - Initial Pre Proc Eval Procedure: Operation Date: 12/08/22 12:00 Proposed Procedures p Right Total Knee Arthroplasty - Reinaldo Zuñiga MD Date/Time: 12/08/22 10:55 Surgeon: Reinaldo Zuñiga MD Pre Op Diagnosis: right knee djd Patient Data Age: 67 Gender: F Height: 1.61 m Weight: 98 kg Last Vital Signs Temp 98.2 F 12/08/22 10:52 Pulse 71 12/08/22 10:52 Resp 16 12/08/22 10:52 BP 112/48 L 12/08/22 10:52 Pulse Ox 97 12/08/22 10:52 O2 Del Method Room Air 12/08/22 10:52 Allergies Allergy/AdvReac Type Severity Reaction Status Date / Time albuterol AdvReac Intermediate Rash Verified 12/08/22 10:13 ciprofloxacin AdvReac Intermediate Nausea Verified 12/08/22 10:13 Sulfa (Sulfonamide AdvReac Intermediate Rash Verified 12/08/22 10:13 Antibiotics) Home Medications Medication Instructions Recorded Confirmed Type amlodipine 10 mg-atorvastatin 40 1 tablet PO DAILY #90 tabs 05/22/22 12/08/22 Rx mg tablet desvenlafaxine succinate 100 mg 100 mg PO DAILY #90 tabs 05/22/22 12/08/22 Rx tablet,extended release 24 hr ezetimibe 10 mg tablet 10 mg PO DAILY #90 tabs 05/22/22 12/08/22 Rx irbesartan 300 mg tablet 300 mg PO DAILY #90 tabs 05/22/22 12/08/22 Rx triamterene 75 1 tablet PO DAILY #90 tabs 05/22/22 12/08/22 Rx mg-hydrochlorothiazide 50 mg tablet acetaminophen 500 mg tablet 500 mg PO QID PRN Pain 07/07/22 12/08/22 History potassium chloride 10 mEq 10 meq PO ONCE PRN MUSCLE CRAMPING 07/07/22 12/03/22 History capsule,extended release Laboratory Tests 12/08/22 10:41 PT Pending INR Pending APTT Pending Patient hx anesthesia problems: none Family hx anesthesia problems: none Results Review: All pre-operative results and documents have been reviewed as part of the pre-operative evaluation. [facility] Past Medical History Medical History (Updated 11/29/22 @ 10:37 by Gigi Cunningham PA-C) Anxiety Anxiety and depression Arthritis Back pain with history of spinal surgery Decreased GFR Diabetes Diarrhea Hearing loss High cholesterol Hypertension Hypertensive heart disease without heart failure Irritable bowel syndrome Keratoderma palmoplantaris transgrediens Left knee DJD Metabolic syndrome Osteoporosis Primary osteoarthritis involving multiple joints Psoriasis Right knee DJD Skin cancer Vitamin D deficiency, unspecified Surgical History Surgical History (Updated 11/29/22 @ 10:37 by Gigi Cunningham PA-C) History of back surgery History of section complicating History of total left knee replacement 07/21/2022 Family History Family History Father Hypertension Cancer Mother Hypertension Depression Anxiety Sibling Cancer Hypertension Depression Anxiety Other Lung cancer Malignant neoplasm of prostate Social History Social History Smoking status: Never smoker Second hand tobacco smoke exposure: No Additional smoking assessment comments: PT DENIES ALL FORMS OF TOBACCO USE Alcohol intake: current Alcohol use details: 2/MONTH Substance use: never Substance use type: does not use Lack of Transportation: No Lack of Food: Never True Current Housing: I Have Housing Concerned About Future Housing: No Difficulty Paying Gas/Electric Bills: No Difficulty Paying for Meds: No Currently Unemployed: No Education: High School Diploma/GED Difficulty w/ Childcare or Family Care: No Living arrangements: with family Gender identity (if verbalized by the patient): Female Spiritual care concerns: No Anes - Eval Final PreProcedure Day of Procedure 12/08/22 10:55 Patient weight: obese Heart: regular rate and rhythm Lungs: clear to auscultation Airway: Mallampati scale class II Neurological: alert and oriented Last oral intake: >/= 8 hours ASA
[2022-12-08 11:05] LABS: INR 0.9; Prothrombin Time 12.6 Seconds (11.1-14.7)
[2022-12-08 11:06] LABS: Partial Thromboplastin Time 32.5 SECONDS (22.3-36.8)
[2022-12-08 11:14] LABS: Hemoglobin A1C 6.1 % (<5.7)
[2022-12-08] MEDS: TRANEXAMIC ACID 1,000MG/ISO100 1,000 MG/100 ML BAG 200 MG IVPB (11:40)
--- NOTE | 2022-12-08 11:52 | WPDHPUPDATE1 ---
History and Physical Update Update Date/Time: 12/08/22 11:52 History and Physical has been reviewed, including an updated exam of the patient. There are NO changes in the patient's condition. Risks, benefits, and alternatives have been discussed and questions answered. Patient agrees to proceed with procedure.
[2022-12-08] MEDS: ceFAZolin 2 GM/D5W 50 ML 2 GM/50 ML BAG IVPB ×2 (12:05→19:55)
--- NOTE | 2022-12-08 12:24 | WPDANESPNB ---
Anes - Peripheral Nerve Block Date/Time: 12/08/22 12:24 I have discussed with the patient/family/POA the placement of a peripheral nerve block for post-operative pain management, including associated risks, benefits, complications, and side effects. Alternative methods of post-operative analgesia were detailed. Questions were solicited and answers provided to the satisfaction of the patient/family/POA. Time-Out: A pre-procedural Time-Out was completed immediately before starting the procedure and confirmed: Patient Identification, Site, Procedure, Patient Position and the Availability of Requisite Equipment. Clinical Indications: Acute post-operative pain management requested by the operative surgeon. Nerve Block Insertion Note Anes-nerve block: adductor canal right Patient position: supine Skin prep: chlorhexidine Needle: 22 gauge, stimulating, insulated echogenic needle. Needle length: 80 mm Technique: ultrasound Injectate: bupivacaine 0.5% with epi 5 mcg/ml (30cc - no epi) Observations: tolerated well Complications: none Procedure start time:: 1156 Procedure end time:: 1199
[2022-12-08] MEDS: TRANEXAMIC ACID 1,000 MG/10 ML AMPUL 1000 MG IV PUSH (13:49)
--- NOTE | 2022-12-08 14:46 | W.PM.PROC2 ---
Procedure Note - Detailed Date of Procedure 12/08/22 Pre-op Diagnosis right knee djd Post-op Diagnosis Same Procedure Performed R TKA Surgeon Reinaldo Zuñiga MD Anesthesia General Description of Procedure THE RIGHT KNEE WAS PREPPED AND DRAPED IN THE STERILE FASHION. THERE WAS A 10 DEGREE FLEXION CONTRACTURE. A MIDLINE SKIN INCISION WAS MADE. A MEDIAL PARAPATELLAR ARTHROTOMY WAS MADE. THE PATELLA WAS EVERTED. THERE WAS TRICOMPARTMENT DJD. AN INTRAMEDULLARY DESHAUN WAS PLACED IN THE FEMUR. A DISTAL FEMORAL CUT WAS MADE IN 5 DEGREES OF VALGUS REMOVING APPROXIMATELY 9 MM OF BONE FROM THE DISTAL FEMUR. THE FEMUR WAS SIZED TO 62.5. A 62.5 FEMORAL CUTTING BLOCK WAS PLACED IN 3 DEGREES OF EXTERNAL ROTATION AND IN ALIGNMENT WITH SHANTELLE'S LINE AND THE TRANSEPICONDYLAR AXIS. ANTERIOR POSTERIOR AND CHAMFER CUTS WERE MADE. THE CUTS WERE EXCELLENT. NEXT AN INTRAMEDULLARY CUTTING GUIDE WAS PLACED IN THE TIBIA. A TRANS TIBIAL CUT WAS MADE ALONG THE LONG AXIS OF THE TIBIA. APPROXIMATELY 10 MM OF BONE WAS REMOVED FROM THE HIGH SIDE OF THE TIBIA. THE TIBIA WAS THEN PLANED TO A SMOOTH SURFACE. POSTERIOR FEMORAL OSTEOPHYTES WERE REMOVED FROM THE FEMORAL CONDYLES. A 71 TIBIAL TRIAL WAS PLACED IN ALIGNMENT WITH THE 1/3 MEDIAL ASPECT OF THE TIBIAL TUBERCLE. THEN A 62.5 FEMORAL TRIAL COMPONENT WAS PLACED. BOTH HAD EXCELLENT FITS. EVENTUALLY A 10 MM CR POLYETHYLENE TRIAL COMPONENT WAS PLACED. THE KNEE WAS TAKEN THROUGH A RANGE OF MOTION. THE KNEE CAME OUT TO FULL EXTENSION. THERE WAS NO ABNORMAL TILT TO THE PATELLA. THERE WAS GOOD A/P AND VARUS/VALGUS STABILITY. THERE WAS NO EXCESSIVE ROLL BACK WITH FLEXION. THE TRIAL COMPONENTS WERE REMOVED. THEN A 62.5 FEMORAL COMPONENT AND 71 TIBIAL COMPONENT WITH A 10 CR POLYETHYLENE COMPONENT WERE CEMENTED INTO PLACE. ONCE THE CEMENT WAS HARD THE KNEE WAS TAKEN THROUGH A ROM AGAIN AND FOUND TO BE STABLE WITH NO PATELLA TILT NO EXCESSIVE ROLL BACK WITH FLEXION AND GOOD STABILITY WITH COMPLETE AND FULL EXTENSION. THE KNEE WAS IRRIGATED WITH STERILE BETADINE AND WATER FOR ABOUT 3 MINUTES. THE BLEEDERS WERE CAUTERIZED. THE ARTHROTOMY WAS REPAIRED WITH NUMBER 1 VICRYL. THE SUB CUTANEOUS LAYER WITH 2-0 VICRYL AND THE SKIN WITH ADITI. THE WOUND WAS WASHED AND A STERILE DRESSING WAS APPLIED. PATIENT WAS EXTUBATED. Estimated Blood Loss -150.0 Pathology None sent Complications No immediate complications Condition Stable Disposition PACU
[2022-12-08] MEDS: fentaNYL CITRATE INJ (*CRX) 100 MCG/2 ML VIAL 25 MCG IV PUSH ×8 (14:58→15:30)
--- NOTE | 2022-12-08 16:08 | ADMGEN ---
This patient, Ratna Booth, was admitted to [facility] Surg Room 331-01 at 1600. Patient/family oriented to hospital policies and general routines including ID bracelet, bed and alarms, visiting hours, pain management, procedures, bathroom and other care routines, personal items, smoking policy, room service/diet, and visiting hours. Information on how to activate the Rapid Response Team has been discussed. Patient/Family are encouraged to report perceived risks to care and to ask questions if they do not understand what they are told or what they should do.
[2022-12-08] MEDS: oxyCODONE/ACETAMINOPHEN (*CRX) 5-325 MG TABLET 2 TABLET PO ×2 (16:31→22:22)
[2022-12-08] MEDS: KETOROLAC 15 MG/ML VIAL (*BKC) IV PUSH ×2 (17:39→23:42)
[2022-12-08] MEDS: SENNA/DOCUSATE SODIUM TABLET 2 TAB PO (17:39)
[2022-12-08] MEDS: ASPIRIN 325 MG ENTERIC TABLET PO (19:58)
[2022-12-08] MEDS: FAMOTIDINE 20 MG TABLET PO (19:58)
[2022-12-09 01:38] VITALS: BP 130/70; PULSE 70; RESP 16; TEMP 36.2; O2SAT 98
[2022-12-09] MEDS: ceFAZolin 2 GM/D5W 50 ML 2 GM/50 ML BAG IVPB ×2 (04:06→12:05)
[2022-12-09] MEDS: oxyCODONE/ACETAMINOPHEN (*CRX) 5-325 MG TABLET 2 TABLET PO (04:43)
[2022-12-09 05:38] VITALS: BP 128/67; PULSE 64; RESP 18; TEMP 35.8; O2SAT 95
[2022-12-09] MEDS: KETOROLAC 15 MG/ML VIAL (*BKC) IV PUSH ×2 (05:52→12:05)
[2022-12-09 06:30] LABS: Basophils Percent Auto 0.1 % (0.2-1.2); Hematocrit 35.2 % (37.0-47.0); Immature Granulocyte Absolute 0.06 K/mm3 (0.00-0.031); Immature Granulocyte Percent A 0.5 % (0-0.5); Lymphocytes Percent Auto 4.8 % (18.3-44.2); Mean Corpuscular HGB Conc 31.3 g/dl (32-36); Mean Corpuscular Hemoglobin 26.5 pg (26-34); Mean Corpuscular Volume 84.8 fl (80-100); Mean Platelet Volume 9.2 fl (7.4-10.4); Monocytes Absolute Auto 1.1 K/mm3 (0.1-0.6); Monocytes Percent Auto 8.3 % (2.6-8.5); Neutrophils Absolute Auto 10.9 K/mm3 (1.3-6.7); Neutrophils Percent Auto 86.3 % (45.5-73.1); Platelet Count Result 249 k/mm3 (150-375); Red Blood Count 4.15 M/mm3 (4.2-5.4); Red Cell Distribution Width 12.3 % (11.5-14.5); White Blood Count 12.6 K/mm3 (4.5-10.0)
[2022-12-09 06:40] LABS: Anion Gap 4 mmol/L (8-16); Blood Urea Nitrogen 37 mg/dL (7-17); Carbon Dioxide 28 mmol/L (22-30); Chloride 102 mmol/L (98-107); Estimated CRCL calculation 46 ml/min; Estimated Glomerular Filt Rate 45; Glucose 133 mg/dL (65-110); Potassium 4.4 mmol/L (3.4-5.0); Sodium 134 mmol/L (137-145)
[2022-12-09 08:56] VITALS: BP 131/68; PULSE 72; RESP 16; TEMP 36.1; O2SAT 95
[2022-12-09] MEDS: SENNA/DOCUSATE SODIUM TABLET 2 TAB PO (09:12)
[2022-12-09] MEDS: FAMOTIDINE 20 MG TABLET PO (09:12)
[2022-12-09] MEDS: polyethylene glycoL 3350 17 GM POWD.PACK PO (09:13)
[2022-12-09] MEDS: ATORVASTATIN 40 MG TABLET PO (09:16)
[2022-12-09] MEDS: TRIAMTERENE 37.5 MG/HCTZ 25 MG (MAXZIDE) TABLET 2 TAB PO (09:16)
[2022-12-09] MEDS: IRBESARTAN 150 MG TABLET 300 MG PO (09:16)
[2022-12-09] MEDS: EZETIMIBE 10 MG TABLET PO (09:16)
[2022-12-09] MEDS: DESVENLAFAXINE SUCCINATE 50 MG TAB.ER.24H 100 MG PO (09:17)
[2022-12-09] MEDS: amLODIPine BESYLATE 5 MG TABLET 10 MG PO (09:17)
[2022-12-09] MEDS: ASPIRIN 325 MG ENTERIC TABLET PO (09:19)
--- NOTE | 2022-12-09 09:29 | P.PNAN_ITS ---
Anes - Prog Note Post-Op Date/Time: 12/09/22 09:29 Cardiovascular status: normal Respiratory status: normal Airway patency: baseline Mental status: baseline Post-Op hydration status: normal Vital Signs: Last Vital Signs Temp 36.1 C L 12/09/22 08:56 Pulse 72 12/09/22 08:56 Resp 16 12/09/22 08:56 BP 131/68 12/09/22 08:56 Pulse Ox 95 12/09/22 08:56 O2 Del Method Room Air 12/09/22 08:05 O2 Flow Rate 8 12/08/22 15:10 Pain Score (VAS): 0 I/O: Intake & Output 12/08/22 12/09/22 12/09/22 23:59 07:59 15:59 Intake Total 170 200 Output Total 100 200 Balance 70 0 Laboratory Tests 12/09/22 06:12 12/09/22 06:12 12/08/22 12/08/22 12/09/22 10:41 10:53 06:12 WBC 12.6 H RBC 4.15 L Hgb 11.0 L Hct 35.2 L MCV 84.8 MCH 26.5 MCHC 31.3 L RDW 12.3 Plt Count 249 MPV 9.2 Immature Gran % (Auto) 0.5 Neut % (Auto) 86.3 H Lymph % (Auto) 4.8 L [place] % (Auto) 8.3 Eos % (Auto) 0.0 Baso % (Auto) 0.1 L Lymph # (Auto) 0.60 L [place] # (Auto) 1.1 H Eos # (Auto) 0.0 Baso # (Auto) 0.0 Abs Immat Gran (auto) 0.06 H Absolute Neuts (auto) 10.9 H Absolute Nucleated RBC 0.0 Nucleated RBC % 0.0 PT 12.6 INR 0.9 APTT 32.5 Sodium 134 L Potassium 4.4 Chloride 102 Carbon Dioxide 28 Anion Gap 4 L BUN 37 H D Creatinine 1.20 H Estim Creat Clear Calc 46 Estimated GFR 45 L Glucose 133 H Hemoglobin A1c 6.1 H Calcium 9.0 Blood Type Pending Antibody Screen Positive Antibody Identification Pending Antigen Identification Pending CRISTIN, IgG Interpret Positive CRISTIN, Poly Interpret Positive CRISTIN, Complement Interp Negative Post-procedural complaints: none Patient Feedback: Patient satisfied with anesthetic care.
[2022-12-09] MEDS: oxyCODONE/ACETAMINOPHEN (*CRX) 5-325 MG TABLET 1 TABLET PO (09:30)
--- NOTE | 2022-12-09 11:40 | PCCCNOTE ---
On 12/09/22, the student, [Betsy Paulino], provided care and completed [facility] documentation on this patient. I have reviewed the student's documentation and agree with the findings.
--- NOTE | 2022-12-09 12:07 | PCPTNOTE ---
On 12/09/22, the student, LAUREN Neumann, provided care and completed [facility] documentation on this patient. I have reviewed the student's documentation and agree with the findings.
--- NOTE | 2022-12-09 13:16 | PM.PNORT ---
Progress Note: A&P Assessment and Plan (1) Right knee DJD: Code(s): M17.11 - Unilateral primary osteoarthritis, right knee Status: Acute Assessment and Plan: POD 1 DOING WELL. OK TO DC HOME F/U IN 3 WEEKS. Subjective Subjective Date/Time Seen: 12/09/22 13:16 Interval history: POD 1 DOING WELL. NO CALF PAIN Exam Extrem: Other: VSS AFEBRILE DRESSING DRY NV INTACT NEG HOMANS SIGN, CALF SOFT NONTENDER Objective Data Vital Signs Vital Signs: Vital Signs - 24 hr 12/08/22 14:46 12/08/22 15:00 12/08/22 15:10 Temperature 36.8 C Pulse Rate 82 68 72 Respiratory Rate 20 14 14 Blood Pressure 106/59 L 105/53 L 102/62 Pulse Oximetry 98 95 97 Oxygen Delivery Simple Face Mask Simple Face Mask Simple Face Mask Oxygen Flow Rate 8 8 8 12/08/22 15:25 12/08/22 15:40 12/08/22 15:50 Temperature 36.7 C Pulse Rate 79 86 82 Respiratory Rate 16 14 16 Blood Pressure 112/65 115/63 124/72 Pulse Oximetry 98 94 94 Oxygen Delivery Room Air Room Air Room Air Oxygen Flow Rate 12/08/22 16:07 12/08/22 16:15 12/08/22 16:30 Temperature 36.3 C L 36.4 C L Pulse Rate 82 75 82 Respiratory Rate 16 16 12 Blood Pressure 132/59 L 144/71 H Pulse Oximetry 94 92 90 Oxygen Delivery Room Air Oxygen Flow Rate 12/08/22 17:00 12/08/22 18:05 12/08/22 21:38 Temperature 36.6 C 36.6 C 35.6 C L Pulse Rate 72 76 74 Respiratory Rate 12 12 14 Blood Pressure 118/60 98/55 L 125/61 Pulse Oximetry 92 91 95 Oxygen Delivery Oxygen Flow Rate 12/09/22 01:38 12/09/22 05:38 12/09/22 08:05 Temperature 36.2 C L 35.8 C L Pulse Rate 70 64 Respiratory Rate 16 18 Blood Pressure 130/70 128/67 Pulse Oximetry 98 95 Oxygen Delivery Room Air Oxygen Flow Rate 12/09/22 08:56 12/09/22 09:10 Temperature 36.1 C L Pulse Rate 72 Respiratory Rate 16 Blood Pressure 131/68 Pulse Oximetry 95 Oxygen Delivery Room Air Oxygen Flow Rate Intake/Output Intake/Output: Intake & Output 12/06/22 12/07/22 12/08/22 12/09/22 23:59 23:59 23:59 23:59 Intake Total 620 940 Output Total 100 200 Balance 520 740 Meds/Results Medications: Active Medications Generic Name Dose Route Start Last Admin Trade Name Freq PRN Reason Stop Dose Admin Acetaminophen 1,000 mg 12/08/22 15:53 Acetaminophen 500 Mg Tablet PO Q6H PRN Pain Rated 1-3 Amlodipine Besylate 10 mg 12/09/22 09:00 12/09/22 09:17 Amlodipine Besylate 5 Mg Tablet PO 01/08/23 08:59 10 mg DAILY ALICIA Administration Aspirin 325 mg 12/08/22 21:00 12/09/22 09:19 Aspirin 325 Mg Enteric Tablet PO 325 mg Q12HR ALICIA Administration Atorvastatin Calcium 40 mg 12/09/22 09:00 12/09/22 09:16 Atorvastatin 40 Mg Tablet PO 01/08/23 08:59 40 mg DAILY ALICIA Administration Desvenlafaxine Succinate 100 mg 12/09/22 09:00 12/09/22 09:17 Desvenlafaxine Succinate 50 Mg Tab.Er.24h PO 01/08/23 08:59 100 mg DAILY ALICIA Administration Diazepam 5 mg 12/08/22 15:53 Diazepam (*Crx) 5 Mg Tablet PO Q8H PRN Spasms Diphenhydramine HCl 25 mg 12/08/22 15:53 Diphenhydramine Hcl Inj 50 Mg/Ml Vial IV PUSH Q6H PRN Itching Ezetimibe 10 mg 12/09/22 09:00 12/09/22 09:16 Ezetimibe 10 Mg Tablet PO 10 mg DAILY ALICIA Administration Famotidine 20 mg 12/08/22 21:00 12/09/22 09:12 Famotidine 20 Mg Tablet PO 20 mg Q12HR ALICIA Administration Irbesartan 300 mg 12/09/22 09:00 12/09/22 09:16 Irbesartan 150 Mg Tablet PO 300 mg DAILY ALICIA Administration Ketorolac Tromethamine 15 mg 12/08/22 18:00 12/09/22 12:05 Ketorolac 15 Mg/Ml Vial (*Bkc) IV PUSH 12/09/22 18:01 15 mg Q6HR ALICIA Administration Naloxone HCl 0.1 mg 12/08/22 15:53 Naloxone Hcl 0.4 Mg/Ml Vial IV PUSH Q2M PRN Opiate Reversal Ondansetron HCl 4 mg 12/08/22 15:53 Ondansetron Inj 4 Mg/2 Ml Vial IV PUSH Q4H PRN Nausea And Vomiting Oxycodone/Acetaminophen 1 tablet
--- NOTE | 2022-12-09 13:20 | PM.DS ---
DS: Admitting Diagnosis Discharge Date 12/09/22 Admitting Diagnosis RIGHT KNEE DJD DS: Discharge Diagnosis Discharge Diagnosis (1) Right knee DJD: Code(s): M17.11 - Unilateral primary osteoarthritis, right knee Status: Acute DS: Summary Hospital Course Reason for hospitalization: RIGHT TKA Hospital Course: PATIENT WAS ADMITTED S/P TOTAL KNEE ARTHROPLASTY FOR POSTOPERATIVE MEDICAL MANAGEMENT, PAIN CONTROL AND MOBILIZATION WITH PHYSICAL AND OCCUPATIONAL THERAPY. THE PATIENT PROGRESSED WELL WITH PT/OT. LABS AND VITALS REMAINED STABLE AND PAIN WELL CONTROLLED. THE PATIENT HAS BEEN CLEARED TO BE DISCHARGED HOME. FOLLOW UP APPOINTMENT SCHEDULED. DISCHARGE INSTRUCTIONS DISCUSSED AT LENGTH WITH THE PATIENT. MEDICATIONS REVIEWED. Status at Discharge Cognitive/behavioral status at discharge: STABLE Functional status at discharge: uses cane/walker Time Spent with Patient Time attestation: Total time spent providing and/or coordinating discharge services: DS: Data Data Completed and Pending Labs on day of discharge: Labs from last 24 hours 12/09/22 12/08/22 06:12 10:41 WBC 12.6 H RBC 4.15 L Hgb 11.0 L Hct 35.2 L MCV 84.8 MCH 26.5 MCHC 31.3 L RDW 12.3 Plt Count 249 MPV 9.2 Immature Gran % (Auto) 0.5 Neut % (Auto) 86.3 H Lymph % (Auto) 4.8 L [place] % (Auto) 8.3 Eos % (Auto) 0.0 Baso % (Auto) 0.1 L Lymph # (Auto) 0.60 L [place] # (Auto) 1.1 H Eos # (Auto) 0.0 Baso # (Auto) 0.0 Abs Immat Gran (auto) 0.06 H Absolute Neuts (auto) 10.9 H Absolute Nucleated RBC 0.0 Nucleated RBC % 0.0 Sodium 134 L Potassium 4.4 Chloride 102 Carbon Dioxide 28 Anion Gap 4 L BUN 37 H D Creatinine 1.20 H Estim Creat Clear Calc 46 Estimated GFR 45 L Glucose 133 H Calcium 9.0 Blood Type Pending Antibody Screen Positive Antibody Identification Pending Antigen Identification Pending CRISTIN, IgG Interpret Positive CRISTIN, Poly Interpret Positive CRISTIN, Complement Interp Negative Procedures/Treatments: R TKA Discharge Plan Discharge Patient Disposition: Home Health Service Discharge Instructions: [facility] arranged for RN, PT/OT evaluations and treatment. [facility] can be reached at [phone] [place] [address] will contact you for first visit arrangements. Post Op Total Knee Replacement Instructions Dr. Reinaldo Zuñiga [phone] Your dressing will be changed prior to your discharge. You will be sent home with one additional dressing to be changed on post op day 7 by the home health RN. Your juju will be removed on the 14th day after surgery and steri-strips will be placed, allow the steri-strips to fall off on their own. Please practice good hand hygiene and do not touch your incision in order to prevent infection. You may shower with your dressing but do not submerge in a bath tub. Do not drive or operate machinery until you are released by Dr. Zuñiga. Do not walk without a walker for any reason until you are released by Dr. Zuñiga. Weight bearing as tolerated. Continue to use your ice machine. Please use a towel or pillow case to protect your skin before applying your ice machine. Do NOT place a pillow under your knee. You may use a pillow from the calf down if needed. This will prevent a flexion contracture postoperatively. You may begin use of your CPM machine at home if you have been given one pre-operatively. DO NOT USE WHILE YOU ARE SLEEPING. Your first post op appointment was sent to you via mail preoperatively. If you have any questions or are unable to make your appointment, please contact our office for scheduling questions. Your medications have been sent to your pharmacy. You have been sent home with pain medication. Please corn picker an over the counter stool softener to prevent constipation due to narcotic use. Please keep this in mind during your postoperative recovery. If you are not experienc
[2022-12-09 13:50] VITALS: BP 110/60; PULSE 70; RESP 16; TEMP 36.7; O2SAT 97
--- NOTE | 2022-12-09 14:38 | PCPTNOTE ---
Patient refused treatment this session. Patient reported she was too exhausted to work with therapy. Patient reported she will work with PT tomorrow. Educated patient on the importance of therapy and sitting up and gave encouragement for participation, patient continued to refuse.
== END 2022-12-09 15:15 | disposition home health service (06) ==
LOC: ANHSURGERY 10:03 → ANH3MEDSUR 15:55
PROVIDERS: PCP Physician Assistant; Visit Provider Orthopaedic Surgery
PROC: (CPT 27447; principal; 2022-12-08 12:00)
DX: M17.11 Unilateral primary osteoarthritis, right knee (principal); G89.18 Other acute postprocedural pain; I13.10 Hypertensive heart and chronic kidney disease without heart failure, with stage 1 through stage 4 chronic kidney disease, or unspecified chronic kidney disease; E11.22 Type 2 diabetes mellitus with diabetic chronic kidney disease; N18.32 Chronic kidney disease, stage 3b; E78.00 Pure hypercholesterolemia, unspecified; F41.8 Other specified anxiety disorders; E66.9 Obesity, unspecified; Z68.37 Body mass index [BMI] 37.0-37.9, adult
CPT/HCPCS: 27447; 64447; 36415; 73560; 80048; 81479; 83036; 85025; 85610; 85730; 86850; 86860; 86870; 86880; 86900; 86901; 86902; 86971; 86978; 97110; 97116; 97161; 97165; A9270; C1713; J0171; J0690; J1100; J1885; J2250; J2270; J2405; J2590; J2704; J2795; J3010; J7120

== ENCOUNTER 2023-03-03 11:00 | Outpatient (RCR) | payer MEDICARE, SELFPAY ==
--- NOTE | 2023-01-06 11:46 | PTOPEVAL1 ---
Assessment and note entered by Kobi Washington Evaluation Information Assessment Status Evaluation Diagnosis s/p right TKA Onset 12/08/22 Subjective Information Pt. reports she underwent right TKA on 12/08/22. She reports that she returned home the next day. She was doing HH therpay and was discharged last week. She states that she has returned to driving and is currently using a cane for ambulation. Pt . reports that prior to surgery she did not use an AD. She reports that she is retired. She enjoys going to soccer games for her grandchildren and has to be able to walk across uneven surfaces. She states that she anticipates having to care for her 4 month old grandchild in the near future. She reports that her goal is to improve her knee mobility and improve her walking. Reported Pain Level Pain Score 4: Self Report Assessment PT Clinical Summary Pt. is a 67 year old female 4 weeks post right TKA . She currently presents with impaired right knee ROM, impaired l.e. strength, impaired gait, edema and functional decline. Continued skilled PT is indicated in order to improve these areas to allow the pt. to be able to complete all IADL's with improved comfort and efficiency. Plan of Care Interventions Electrical Stimulation,Gait Training,Hot Pack/Cold Pack,Manual Therapy,Neuro Re-education,Patient/ Caregiver Educati,Therapeutic Activities, Therapeutic Exercise,Self-Care/Home Management PT Services Indicated Yes Treatment Frequency and 2x/week x 10 visits Duration These treatments will address the objective and functional deficits as defined above. The patient will be advanced safely and appropriately in order for the patient to progress towards his/her prior level of function. Additional exercises will be introduced and as well as a comprehensive home exercise program upon discharge, if needed, ?to ensure carryover of functional gains achieved in the clinic. This treatment plan has been reviewed and agreement upon by the patient.
--- NOTE | 2023-01-06 11:47 | OPREHPOC ---
Outpatient Therapy Plan of Care This is a Multidisciplinary Plan of Care that may contain components documented by all disciplines (PT, OT, and ST.) PT Problem 1 PT Problem #1 Knowledge Deficit PT Goal 1 Goal Pt. will be independent with a HEP emphasizing ROM anabaptist at the right knee joint. Target Visit 2 PT Problem 2 PT Problem #2 Impaired Range of Motion PT Goal 1 Goal Pt. will achieve 2-120 degrees right knee active ROM or greater Target Visit 10 PT Goal 2 Goal Pt. will achieve less than 2 degree contracture into right knee flexion to improve gait mechanics. Target Visit 10 PT Problem 3 PT Problem #3 Impaired Strength PT Goal 1 Goal Pt. will present with 5/5 gross right l.e. strength Target Visit 10 PT Problem 4 PT Problem #4 Impaired Functional Mobil PT Goal 1 Goal Pt. will ambulates over a distance of 800' in 6 minutes without an AD with equal right and left stance time. Target Visit 10 PT Goal 2 Goal Pt. will navigate steps with reciprocal pattern for 15 steps. Target Visit 10 PT Problem 5 PT Problem #5 Edema PT Goal 1 Goal decrease girth measurements at the right knee joint line to 43cm or less. Target Visit 10
--- NOTE | 2023-01-25 15:16 | PCPTNOTE ---
Pt. canceled 01/25/23 appointment as she tested positive for Covid.
--- NOTE | 2023-02-10 12:04 | PTOPEVAL1 ---
[facility] Information Assessment Status Progress Diagnosis s/p right TKA Onset 12/08/22 Subjective Information Pt. reports that she is doing better. She noticed a dime sized wound with a stitch sticking out last week. She reports that she did use antibiotic and notices decrease in the size of the wound. She has not told her doctor. She reports that she is pleased with her progress and will continue to complete her HEP on her own. Reported Pain Level Pain Score 2: Self Report Pain Score 0: Self Report Assessment PT Clinical Summary Pt. is independent with her current HEP. She completes all IADL's with only mild pain. Continue to note some limitations in ROM, edema, gait and strength that indicate the need for continued treatment. Recommend skilled PT for short duration to allow for improved ROM and gait to improve IADL performance. Plan of Care Interventions Gait Training,Hot Pack/Cold Pack,Manual Therapy, Neuro Re-education,Therapeutic Activities, Therapeutic Exercise PT Services Indicated Yes Treatment Frequency and 1x/week x 3 visits Duration These treatments will address the objective and functional deficits as defined above. The patient will be advanced safely and appropriately in order for the patient to progress towards his/her prior level of function. Additional exercises will be introduced and as well as a comprehensive home exercise program upon discharge, if needed, ?to ensure carryover of functional gains achieved in the clinic. This treatment plan has been reviewed and agreement upon by the patient.
--- NOTE | 2023-03-03 12:07 | PTOPDC ---
Assessment and note entered by Kobi Washington Evaluation Information Assessment Status Discharge Diagnosis s/p right TKA Onset 12/08/22 Subjective Information Pt. reports that she has noticed progress. She states that she still experience pain after being in one position for a long period of time. She describes pain on the outside of the right knee. Reported Pain Level Pain Score 2: Self Report Assessment PT Clinical Summary Pt. has attended a total of 11 treatment sessions. In this time she has demonstrated improvements in ROM, strength and functional mobility. She is completing all IADL's without assistance. She continues to present with fluctuating edema at the right knee which may hinder ROM progress. At this time encourage the pt. to continue with her HEP and she will be discharged from our care. Plan of Care PT Services Indicated D/C to independent HEP.
== END 2023-03-03 13:33 | disposition home or self-care (01) ==
LOC: ANHPT 11:00
PROVIDERS: PCP Physician Assistant; Visit Provider Orthopaedic Surgery
DX: Z47.1 Aftercare following joint replacement surgery (principal); Z96.651 Presence of right artificial knee joint
CPT/HCPCS: 97014; 97110; 97112; 97140; 97161; 97530; G0283